=== PATIENT | male | born 1965 ===

== ENCOUNTER 2019-04-05 06:08 | Day surgery (SDC) | payer OTHER ==
[~2019-04-05 06:08] MED LIST: AXID PO; COZAAR100 MG PO; MICROZIDE12.5 MG PO; NORVASC10 MG PO
== END 2019-04-05 16:30 | disposition home or self-care (01) ==
LOC: CIR.AMB 06:08
DX: K60.3 Anal fistula (principal)

== ENCOUNTER 2020-02-28 08:50 | Day surgery (SDC) | payer OTHER | END 2020-02-28 17:20 | disposition home or self-care (01) | LOC: CIR.AMB 08:50 | PROVIDERS: ATTEND Colon & Rectal Surgery | DX: K60.5 Anorectal fistula (principal); Z20.828 Contact with and (suspected) exposure to other viral communicable diseases ==